=== PATIENT | female | born 1990 | race Caucasian/White ===

== ENCOUNTER 2017-04-02 18:08 | Outpatient (CLI) | payer MEDICAID ==
[~2017-04-02] VITALS: Ht 162.6 cm; Wt 52.8 kg
[2017-04-02 18:22] VITALS: BP 107/65; PULSE 74; RESP 18; Ht 162.6 cm; Wt 52.8 kg
[2017-04-02] MEDS ORDERED: PRENAT PO (18:22)
--- NOTE | 2017-04-02 18:47 | TRIAGE ---
OB Triage Datetime Report Generated by CPN: 04/02/2017 18:46 Datetime: 04/02/2017 18:38 Stage of : OB Triage Maternal Assessment Level of Consciousness: Fully Conscious Labor Evaluation Frequency: NONE Monitor Mode: External Resting Tone [place]: Relaxed Heart Rate FHR Baseline Rate: 140 Monitor Mode: External US Variability: Moderate 6-25 bpm Accelerations: 10X10 Decelerations: None Pain Assessment Pain Scale: 0 Pain Goal: 3 Vaginal Exam Membrane Status: Intact Vaginal Bleeding: None Datetime: 04/02/2017 18:20 Assessment Type: Triage Maternal Assessment Level of Consciousness: Fully Conscious DTR's/Clonus: DTRs 2+; No Clonus Headache: Denies Blurred Vision: No Respiratory Effort: Unlabored; Regular Rhythm; Equal Expansion Breath Sounds, Left: Clear and Equal Breath Sounds, Right: Clear and Equal Nausea/Vomiting: Denies RUQ Epigastric Pain: Denies Lower Extremities Edema: None Degree: None Upper Extremities Edema: None Degree: None Facial Edema: None Fall Risk Assessment History of Falling: (0) No Secondary Diagnosis: (0) No Ambulatory Aid: (0) Bedrest/Nurse Assist IV Therapy: (0) No Gait: (0) Normal/Bedrest/Immobile Mental Status: (0) Oriented to Own Ability Fall Score: 0 Fall Risk Score Definition: No Risk: No action required Datetime: 04/02/2017 18:18 Time of Arrival: 04/02/2017 18:01 EGA: 28.0 Arrived By: Ambulatory Arrived From: Home Chief Complaint: PT HERE C/O BUMP ON PERINEUM Movement: Present Contractions: Denies/Absent Rupture of Membranes: Denies Vaginal Bleeding: None Vaginal Discharge: Denies Recent Sexual Intercouse: Denies Abdominal Trauma: Not Applicable Patient Complaints: None Time Provider Notified: 04/02/2017 18:15 Provider Notified: SHAMSIAN Initial Plan: NST Datetime: 04/02/2017 18:16 Monitor Mode: External Monitor Mode: External US
--- NOTE | 2017-04-02 20:24 | QN ---
Documentation Comment iup 28 weeks co fo bump on vagina vss exam wnl no masses palpated on groin nst reacitve a/p iup 28 weeks false labor dc [place] ROSAS ESCALONA MD Apr 02, 2017 20:23
== END 2017-04-02 18:46 | disposition home or self-care (01) ==
LOC: OBT 18:08 → L-D 18:08 → OBT 18:46
PROVIDERS: ATTEND Obstetrics & Gynecology
DX: O47.1 False labor at or after 37 completed weeks of gestation (principal); Z3A.28 28 weeks gestation of pregnancy
CPT/HCPCS: G0463

== ENCOUNTER 2017-06-09 18:35 | Outpatient (CLI) | payer MEDICAID, OTHER ==
[~2017-06-09] VITALS: Ht 162.6 cm; Wt 54.2 kg
[~2017-06-09 18:35] MED LIST: PRENAT PO
[2017-06-09 18:48] VITALS: BP 114/66; PULSE 95; RESP 18; Ht 162.6 cm; Wt 54.2 kg
--- NOTE | 2017-06-09 19:59 | RADRPT ---
PROCEDURE: US biophysical profile. CLINICAL INDICATION: DFM. well-being. TECHNIQUE: Multiple sonographic images of the uterus were obtained. The images were revi ewed on a PACS workstation. COMPARISON: No prior studies are available for comparison. FINDINGS: There is a single live intrauterine gestation. heart rate is 161 beats per minute. The position is cephalic. The placenta is anterior, grade II. The ASHLEY is 16.7 cm. Breathing Movement: 2 Gross Body Movement: 2 Tone: 2 Qualitative Amniotic Fluid Volume: 2 TOTAL: 8 IMPRESSION: 1. Single viable intrauterine gestation. 2. Biophysical profile = 04/27. 3. ASHLEY = 16.7 cm. RPTAT: HFN .Keith Sanz MD, MD Date Time Electronically viewed and signed by .Keith Sanz MD, MD on 06/09/2017 19:59 .N/
[2017-06-09 23:24] LABS: ALBUMIN 3.5 g/dl (3.3-4.9); BILIRUBIN,INDIRECT 0.2 mg/dl (0-1.1); BILIRUBIN,TOTAL 0.2 mg/dl (0.2-1.3)
--- NOTE | 2017-06-10 01:06 | PN ---
Triage Information Date/Time 06/09/2017 Reason for visit: DFHR Weeks of Gestation 37 weeks and 5 days /Para 2 para 1 Diabetes: none Hypertention: none Additional information 26-year-old with IUP at 37 weeks and 5 days here today with complaint of decreased movement. She had her care with Dr. Pallavi Curtis Patient denies any leaking of fluid, vaginal bleeding or contractions. Reports a history of cholestasis of and prior has been induced. Reports had only mild occasional itching of body. Denies any itching of hands and feet. She denies any diagnosis of consistent current . She reports her current was complicated by anemia. Objective Vital Signs Date Time Temp Pulse Resp B/P Pulse Ox O2 Delivery O2 Flow Rate FiO2 06/09/17 18:48 98.2 95 18 114/66 97 Room Air Heart Rate: 130's Contractions: >10 Minutes Apart Exam General appearance: Alert and oriented 4. Patient does not appear to be in any acute distress. NST: Category 1 BMP: 8/8 Fundal height consistent with gestational age Abdomen: Gravid, no tenderness no rebound tenderness no guarding rigidity LFT and bile acids drawn. Results are pending Chemistry Test 06/09/17 21:50 Total Bilirubin 0.2mg/dl (0.2-1.3) Direct Bilirubin 0.00mg/dl (0.00-0.20) Indirect Bilirubin 0.2mg/dl (0-1.1) Aspartate Amino Transf (AST/SGOT) 23IU/L (15-46) Alanine Aminotransferase (ALT/SGPT) 24IU/L (13-69) Alkaline Phosphatase 233IU/L (42-121) H Total Protein 7.0g/dl (6.1-8.1) Albumin 3.5g/dl (3.3-4.9) Results/Medications Results 24 hrs Laboratory Tests Test 06/09/17 21:50 Total Bilirubin 0.2 Direct Bilirubin 0.00 Indirect Bilirubin 0.2 Aspartate Amino Transf (AST/SGOT) 23 Alanine Aminotransferase (ALT/SGPT) 24 Alkaline Phosphatase 233 H Total Protein 7.0 Albumin 3.5 Imaging Results PROCEDURE: US biophysical profile. CLINICAL INDICATION: DFM. well-being. TECHNIQUE: Multiple sonographic images of the uterus were obtained. The images were reviewed on a PACS workstation. COMPARISON: No prior studies are available for comparison. FINDINGS: There is a single live intrauterine gestation. heart rate is 161 beats per minute. The position is cephalic. The placenta is anterior, grade II. The ASHLEY is 16.7 cm. Breathing Movement: 2 Gross Body Movement: 2 Tone: 2 Qualitative Amniotic Fluid Volume: 2 TOTAL: 8 IMPRESSION: 1. Single viable intrauterine gestation. 2. Biophysical profile = 8/8. 3. ASHLEY = 16.7 cm. Disposition: Discharge Assessment/Plan IUP at 37 weeks and 5 Decreased movement testing reassuring History of cholestasis and prior Denies any diagnosis of cholecystitis and current Denies any symptoms now. Due to occasional body mild itching, LFT and bile acids were drawn Patient was advised to return to triage in 3 days for repeat NST/BPP LFT normal Likely does not have cholestasis Patient verbalized understanding Strict labor precautions and kick count discussed with the patient PETE MENDOZA MD Jun 10, 2017 01:06
--- NOTE | 2017-06-10 01:33 | TRIAGE ---
OB Triage Datetime Report Generated by CPN: 06/10/2017 01:33 Datetime: 06/09/2017 22:02 Stage of : OB Triage Labor Evaluation Frequency: 1.5-13 Monitor Mode: External Duration (sec)2399: 40-130 Quality: Mild Pattern: Normal: <= 5 Contractions in 10 Minutes Resting Tone [place]: Relaxed Heart Rate FHR Baseline Rate: 135 Monitor Mode: External US Variability: Moderate 6-25 bpm Accelerations: 15X15 Decelerations: None Category: Category I Datetime: 06/09/2017 21:28 Stage of : OB Triage Datetime: 06/09/2017 21:00 Stage of : OB Triage Labor Evaluation Frequency: 1.5-13 Monitor Mode: External Duration (sec)2399: 40-160 Quality: Mild Pattern: Normal: <= 5 Contractions in 10 Minutes Resting Tone [place]: Relaxed Heart Rate FHR Baseline Rate: 150 Monitor Mode: External US Variability: Moderate 6-25 bpm Accelerations: 15X15 Decelerations: Variable Category: Category II Datetime: 06/09/2017 20:04 Stage of : OB Triage Datetime: 06/09/2017 20:03 Stage of : OB Triage Datetime: 06/09/2017 20:00 Stage of : OB Triage Labor Evaluation Frequency: 1-8 Monitor Mode: External Duration (sec)2399: 40-140 Quality: Mild Pattern: Normal: <= 5 Contractions in 10 Minutes Resting Tone [place]: Relaxed Heart Rate FHR Baseline Rate: 155 Monitor Mode: External US Variability: Moderate 6-25 bpm Accelerations: 15X15 Decelerations: Variable Category: Category II Datetime: 06/09/2017 19:40 Vaginal Exam Dilatation (cms): 0.0 Effacement (%): 40 Station: -3 Exam By: CHARLEY Marino Vaginal Bleeding: None Cervix, Consistency: Moderate Cervix, Position: Posterior Datetime: 06/09/2017 19:33 Stage of : OB Triage Assessment Type: Triage Maternal Assessment Level of Consciousness: Fully Conscious DTR's/Clonus: DTRs 2+; No Clonus Blurred Vision: No Respiratory Effort: Unlabored; Regular Rhythm; Equal Expansion Breath Sounds, Left: Clear and Equal Breath Sounds, Right: Clear and Equal Nausea/Vomiting: Denies RUQ Epigastric Pain: Denies Lower Extremities Edema: None Degree: None Upper Extremities Edema: None Degree: None Facial Edema: None Temperature Route: Oral Fall Risk Assessment History of Falling: (0) No Secondary Diagnosis: (0) No Ambulatory Aid: (0) Bedrest/Nurse Assist IV Therapy: (0) No Gait: (0) Normal/Bedrest/Immobile Mental Status: (0) Oriented to Own Ability Fall Score: 0 Fall Risk Score Definition: No Risk: No action required Pain Assessment Pain Scale: 7 Pain Presence: Intermittent Pain Type: Cramping; Contraction Pain Location: Abdomen; Back Pain Relief Measures: Comfort Measures Datetime: 06/09/2017 19:24 Stage of : OB Triage Datetime: 06/09/2017 19:10 Stage of : OB Triage Datetime: 06/09/2017 18:46 Assessment Type: Triage Maternal Assessment Level of Consciousness: Fully Conscious DTR's/Clonus: DTRs 2+; No Clonus Headache: Denies Blurred Vision: No Respiratory Effort: Unlabored; Regular Rhythm; Equal Expansion Breath Sounds, Left: Clear and Equal Breath Sounds, Right: Clear and Equal Nausea/Vomiting: Denies RUQ Epigastric Pain: Denies Lower Extremities Edema: None Degree: None Upper Extremities Edema: None Degree: None Facial Edema: None Fall Risk Assessment History of Falling: (0) No Secondary Diagnosis: (0) No Ambulatory Aid: (0) Bedrest/Nurse Assist IV Therapy: (0) No Gait: (0) Normal/Bedrest/Immobile Mental Status: (0) Oriented to Own Ability Fall Score: 0 Fall Risk Score Definition: No Risk: No action required Datetime: 06/09/2017 18:44 Time of Arrival: 06/09/2017 18:25 EGA: 37.5 Arrived By: Ambulatory Arrived From: Home Chief Complaint: pt here c/o DFM Movement: Absent Contractions: Denies/Absent Rupture of Membranes: Denies Vaginal Bleeding: None Vaginal Discharge: Present Recent Sexual Intercouse: Denies Abdominal Trauma: Not Applicable Patient Complaints: None Time Provider Notified: 06/09/2017 20:04 Provider Notified: ABUSLEME Initial Plan: NST/BPP Datetime: 06/09/2017 18:38 Monitor Mode: External Monitor Mode: External US Datetime: 04/02/2017 18:20 Fall Score: 0 Fall Risk Score Definition: No Risk: No action required Datetime: 04/02/2017 18:18 EGA: 28.0
== END 2017-06-09 22:08 | disposition home or self-care (01) ==
LOC: OBT 18:35 → L-D 18:37 → OBT 22:08
PROVIDERS: ATTEND Obstetrics & Gynecology
DX: O36.8130 Decreased fetal movements, third trimester, not applicable or unspecified (principal); Z3A.37 37 weeks gestation of pregnancy
CPT/HCPCS: 76818; 80076; 83789; G0463

== ENCOUNTER 2017-06-13 18:09 | Outpatient (CLI) | payer OTHER ==
[~2017-06-13] VITALS: Ht 162.6 cm; Wt 55.0 kg
--- NOTE | 2017-06-13 19:53 | RADRPT ---
PROCEDURE: Obstetrical ultrasound for biophysical profile CLINICAL INDICATION: Biophysical profile. . TECHNIQUE: Obstetrical ultrasound of the uterus for biophysical profile. Transabdominal views are obtained. COMPARISON: 06/09/2017 FINDINGS: Single intrauterine gestation. Presentation: Cephalic. Placenta: Anterior. No evidence of placental abruption. No evidence of placenta previa. breathing movement = 2/2 tone = 2/2 motion = 2/2 ASHLEY = 2/2 ASHLEY = 8.4 cm heart rate: 150 beats per minute IMPRESSION: Single intrauterine gestation. Biophysical profile 04/27 RPTAT: AADD .Kurt Resendez MD, MD Date Time Electronically viewed and signed by .Kurt Resendez MD, on 06/13/2017 19:52 .B/
[2017-06-13 22:41] VITALS: Ht 162.6 cm; Wt 55.0 kg
[2017-06-13 22:42] VITALS: BP 118/59; PULSE 69; RESP 19
--- NOTE | 2017-06-13 22:47 | PN ---
Triage Information Date/Time Jun 13, 2017 Reason for visit: DFM Weeks of Gestation 38w 2d /Para 2/1 Diabetes: none Hypertention: none Additional information Pt also reports some contractions since yesterday AM. Denies bleeding or leaking.Has not been taking in much water/fluid. PMHx: None except has a Total Bile Acid study pending however the pt denies any itching at this time. PSHx: none. NKDA. Objective Heart Rate: 130's Heart Rate Comments Accels to 180 bpm. No decels. Contractions: 6-10 Minutes Apart Exam Thick/2 cm/-3. Results/Medications Imaging Results BPP 8/8. ASHLEY 8.4 cm. VTX. Disposition: Discharge Assessment/Plan A: IUP at 38w 2d. Decreased movement. False labor. P: D/C home. kick counts, labor precautions reviewed and pt encouraged to increase her IV fluid intake. STEF MO MD Jun 13, 2017 22:46
--- NOTE | 2017-06-13 23:29 | TRIAGE ---
OB Triage Datetime Report Generated by CPN: 06/13/2017 23:29 Datetime: 06/13/2017 22:23 Stage of : OB Triage Vaginal Exam Dilatation (cms): 2.0 Effacement (%): 50 Station: -3 Exam By: Cervix, Position: Posterior Datetime: 06/13/2017 22:22 Stage of : OB Triage Datetime: 06/13/2017 22:03 Stage of : OB Triage Labor Evaluation Frequency: 5-8 Monitor Mode: External Duration (sec)2399: 60-120 Pattern: Normal: <= 5 Contractions in 10 Minutes Resting Tone [place]: Relaxed Heart Rate FHR Baseline Rate: 130 Monitor Mode: External US Variability: Moderate 6-25 bpm Accelerations: 15X15 Decelerations: None Category: Category I Pain Assessment Pain Scale: 2 Pain Presence: Intermittent Pain Type: Contraction Pain Location: Abdomen Pain Relief Measures: Comfort Measures Datetime: 06/13/2017 21:25 Stage of : OB Triage Datetime: 06/13/2017 21:00 Stage of : OB Triage Labor Evaluation Frequency: Occasional Monitor Mode: External Pattern: Normal: <= 5 Contractions in 10 Minutes Resting Tone [place]: Relaxed Heart Rate FHR Baseline Rate: 140 Monitor Mode: External US Variability: Moderate 6-25 bpm Accelerations: 15X15 Decelerations: Late Category: Category II Pain Assessment Pain Scale: 2 Pain Presence: Intermittent Pain Type: Contraction Pain Location: Abdomen Pain Relief Measures: Comfort Measures Datetime: 06/13/2017 20:39 Stage of : OB Triage Pain Assessment Pain Scale: 0 Pain Presence: Intermittent Pain Type: Contraction Pain Location: Abdomen Pain Relief Measures: Comfort Measures Datetime: 06/13/2017 20:18 Vaginal Exam Dilatation (cms): 0.0 Exam By: Amie, RN Vaginal Bleeding: None Cervix, Consistency: Soft Datetime: 06/13/2017 20:04 Stage of : OB Triage Labor Evaluation Frequency: x4 Monitor Mode: External Duration (sec)2399: 40-70 Pattern: Normal: <= 5 Contractions in 10 Minutes Resting Tone [place]: Relaxed Heart Rate FHR Baseline Rate: 145 Monitor Mode: External US Variability: Moderate 6-25 bpm Accelerations: Prolonged Decelerations: Late; Variable Category: Category II Pain Assessment Pain Scale: 7 Pain Presence: Intermittent Pain Type: Contraction Pain Location: Abdomen Pain Relief Measures: Comfort Measures Datetime: 06/13/2017 18:56 Maternal Assessment Level of Consciousness: Fully Conscious DTR's/Clonus: DTRs 1+ Headache: Denies Blurred Vision: No Respiratory Effort: Unlabored Breath Sounds, Left: Clear and Equal Breath Sounds, Right: Clear and Equal Nausea/Vomiting: Denies RUQ Epigastric Pain: Denies Facial Edema: None Labor Evaluation Frequency: NONE Monitor Mode: External Resting Tone [place]: Relaxed Heart Rate FHR Baseline Rate: 160 Monitor Mode: External US Variability: Moderate 6-25 bpm Accelerations: 15X15 Decelerations: None Category: Category I Pain Assessment Pain Scale: 0 Pain Presence: None/Denies Pain Type: N/A Pain Goal: 3 Membrane Status: Intact Datetime: 06/13/2017 18:07 Time of Arrival: 06/13/2017 18:07 EGA: 38.2 Arrived By: Wheelchair Arrived From: Emergency Dept Movement: Present Contractions: Occasional Rupture of Membranes: Denies Vaginal Bleeding: None Vaginal Discharge: Denies Recent Sexual Intercouse: Denies Abdominal Trauma: Not Applicable Patient Complaints: Contractions; Other Additional Patient Complaints: DFM Time Provider Notified: 06/13/2017 18:30 Provider Notified: Dr.Reiche Initial Plan: VS, EFM Datetime: 06/09/2017 21:57 Stage of : OB Triage Datetime: 06/09/2017 19:33 Fall Risk Assessment Fall Score: 0 Fall Risk Score Definition: No Risk: No action required Datetime: 06/09/2017 18:46 Fall Risk Assessment Fall Score: 0 Fall Risk Score Definition: No Risk: No action required Datetime: 06/09/2017 18:44 EGA: 37.5 Datetime: 04/02/2017 18:20 Fall Risk Assessment Fall Score: 0 Fall Risk Score Definition: No Risk: No action required Datetime: 04/02/2017 18:18 EGA: 28.0
== END 2017-06-13 22:40 | disposition home or self-care (01) ==
LOC: L-D 18:09 → OBT 18:09
PROVIDERS: ATTEND Obstetrics & Gynecology
DX: O36.8130 Decreased fetal movements, third trimester, not applicable or unspecified (principal); O47.1 False labor at or after 37 completed weeks of gestation; Z3A.38 38 weeks gestation of pregnancy
CPT/HCPCS: 76818; G0463

== ENCOUNTER 2017-06-17 00:26 | Inpatient (IN) | payer OTHER ==
[~2017-06-17] VITALS: Ht 162.6 cm; Wt 55.0 kg
[2017-06-17 00:48] VITALS: Ht 162.6 cm; Wt 55.0 kg
[2017-06-17 00:49] VITALS: BP 118/74; PULSE 60; RESP 18
[2017-06-17] MEDS ORDERED: LIDOCAINE 1% (MPF) 30 ML INJ INJ PRN (01:30)
[2017-06-17] MEDS ORDERED: OXYTOCIN 30 UNITS/LR 500 ML IV PRN ×2 (01:30→09:30)
[2017-06-17] MEDS ORDERED: IBUPROFEN 600 MG TAB PO PRN (01:30)
[2017-06-17] MEDS ORDERED: METHYLERGONOVINE 0.2 MG INJ IM PRN ×2 (01:30→09:30)
[2017-06-17] MEDS ORDERED: MISOPROSTOL 200 MCG TAB PR PRN ×2 (01:30→09:30)
[2017-06-17] MEDS ORDERED: CARBOPROST 250 MCG INJ IM PRN ×2 (01:30→09:30)
[2017-06-17] MEDS ORDERED: BUTORPHANOL 2 MG INJ IV PRN (01:30)
[2017-06-17] MEDS ORDERED: AMPICILLIN 2 GM/NS (PMX) 100 ML IV ONE (01:30)
[2017-06-17] MEDS ORDERED: OXYTOCIN 30 UNITS/LR 500 ML IV SCH ×2 (01:30)
[2017-06-17] MEDS ORDERED: LACTATED RINGER'S 1,000 ML IV PRN (01:30)
[2017-06-17] MEDS: LACTATED RINGER'S 1,000 ML IV SCH ×2 (01:52→09:08)
[2017-06-17 02:37] LABS: BASOPHILS % 0.4 % (0.0-2.0); EOSINOPHILS % 0.3 % (0.0-7.0); HEMOGLOBIN 11.5 g/dl (12.0-16.0); LYMPHOCYTES # 2.5 10^3/ul (0.8-2.9); LYMPHOCYTES % 31.6 % (15.0-51.0); MEAN CORPUSCULAR HEMOGLOBIN 31.9 pg (29.0-33.0); MEAN CORPUSCULAR HGB CONC 34.8 g/dl (32.0-37.0); MEAN CORPUSCULAR VOLUME 91.4 fl (82.0-101.0); MEAN PLATELET VOLUME 10.8 fl (7.4-10.4); MONOCYTE # 0.7 10^3/ul (0.3-0.9); MONOCYTES % 8.5 % (0.0-11.0); NEUTROPHIL # 4.6 10^3/ul (1.6-7.5); NEUTROPHILS % 57.9 % (39.0-77.0); PLATELET COUNT 195 10^3/UL (140-415); RED BLOOD COUNT 3.61 10^6/ul (4.20-5.40); RED CELL DISTRIBUTION WIDTH 12.8 % (11.5-14.5); WHITE BLOOD COUNT 7.9 10^3/ul (4.8-10.8)
[2017-06-17 02:53] LABS: INR 0.81; PROTIME 11.2 Sec (12.2-14.2); PT RATIO 0.9
[2017-06-17 02:54] LABS: PARTIAL THROMBOPLASTIN TIME 25.5 Sec (25.0-35.0)
--- NOTE | 2017-06-17 03:14 | TRIAGE ---
OB Triage Datetime Report Generated by CPN: 06/17/2017 03:14 Datetime: 06/17/2017 02:57 Vaginal Exam Dilatation (cms): 5.0 Effacement (%): 80 Station: -1 Exam By: KATIUSKA WHITEHEAD Vaginal Bleeding: Normal Show Cervix, Consistency: Soft Cervix, Position: Midposition Presentation 'A': Cephalic Datetime: 06/17/2017 02:34 Assessment Type: Admission Assessment Vaginal Bleeding: None Maternal Assessment Level of Consciousness: Fully Conscious DTR's/Clonus: DTRs 2+; No Clonus Headache: Denies Blurred Vision: No Respiratory Effort: Unlabored; Regular Rhythm; Equal Expansion Breath Sounds, Left: Clear and Equal Breath Sounds, Right: Clear and Equal Nausea/Vomiting: Denies RUQ Epigastric Pain: Denies Lower Extremities Edema: None Degree: None Upper Extremities Edema: None Degree: None Facial Edema: None Temperature Route: Oral Fall Risk Assessment History of Falling: (0) No Secondary Diagnosis: (0) No Ambulatory Aid: (0) Bedrest/Nurse Assist IV Therapy: (20) Yes Gait: (0) Normal/Bedrest/Immobile Mental Status: (0) Oriented to Own Ability Fall Score: 20 Fall Risk Score Definition: No Risk: No action required Labor Evaluation Frequency: 3-7 Monitor Mode: External Duration (sec)2399: 40-90 Quality: Moderate Pattern: Normal: <= 5 Contractions in 10 Minutes Resting Tone [place]: Relaxed Heart Rate FHR Baseline Rate: 130 Monitor Mode: External US Variability: Moderate 6-25 bpm Accelerations: 15X15 Decelerations: None Category: Category I Pain Assessment Pain Scale: 7 Pain Presence: Intermittent Pain Type: Contraction Pain Location: Abdomen Datetime: 06/17/2017 01:56 Time of Arrival: 06/17/2017 01:56 EGA: 38.6 Arrived By: Ambulatory Arrived From: TRIAGE Datetime: 06/17/2017 01:54 Stage of : OB Triage Labor Evaluation Frequency: 2-7 Monitor Mode: External Duration (sec)2399: 50-220 Quality: Strong Pattern: Normal: <= 5 Contractions in 10 Minutes Resting Tone [place]: Relaxed Heart Rate FHR Baseline Rate: 130 Monitor Mode: External US Variability: Moderate 6-25 bpm Accelerations: 15X15 Decelerations: None Category: Category I Comments: MONITOR OFF, PT TO FBC4 Datetime: 06/17/2017 01:02 Stage of : OB Triage Datetime: 06/17/2017 01:00 Stage of : OB Triage Labor Evaluation Frequency: 4-8 Monitor Mode: External Duration (sec)2399: 50-100 Quality: Strong Pattern: Normal: <= 5 Contractions in 10 Minutes Resting Tone [place]: Relaxed Heart Rate FHR Baseline Rate: 135 Monitor Mode: External US Variability: Moderate 6-25 bpm Accelerations: 15X15 Decelerations: None Category: Category I Datetime: 06/17/2017 00:59 Stage of : OB Triage Vaginal Exam Dilatation (cms): 4.0 Effacement (%): 70 Station: -2 Exam By: JamilaRN Vaginal Bleeding: Small Datetime: 06/17/2017 00:45 Stage of : OB Triage Assessment Type: Triage Maternal Assessment Level of Consciousness: Fully Conscious DTR's/Clonus: DTRs 2+; No Clonus Headache: Denies Blurred Vision: No Respiratory Effort: Unlabored; Regular Rhythm; Equal Expansion Breath Sounds, Left: Clear and Equal Breath Sounds, Right: Clear and Equal Nausea/Vomiting: Denies RUQ Epigastric Pain: Denies Lower Extremities Edema: None Degree: None Upper Extremities Edema: None Degree: None Facial Edema: None Temperature Route: Oral Fall Risk Assessment History of Falling: (0) No Secondary Diagnosis: (0) No Ambulatory Aid: (0) Bedrest/Nurse Assist IV Therapy: (0) No Gait: (0) Normal/Bedrest/Immobile Mental Status: (0) Oriented to Own Ability Fall Score: 0 Fall Risk Score Definition: No Risk: No action required Pain Assessment Pain Scale: 7 Pain Presence: Intermittent Pain Type: Cramping; Contraction Pain Location: Abdomen Pain Relief Measures: Comfort Measures Datetime: 06/17/2017 00:38 Time of Arrival: 06/17/2017 00:21 EGA: 38.6 Arrived By: Wheelchair Arrived From: Home Chief Complaint: Bleeding since 2339 with uc's q5mins Movement: Present Contractions: Regular Time Contractions Began: 06/16/2017 23:40 Contractions: q5mins Rupture of Membranes: Unsure Vaginal Bleeding: Moderate Vaginal Discharge: Present Recent Sexual Intercouse: Yes Abdominal Trauma: Not Applicable Patient Complaints: Contractions; Cramping Time Provider Notified: 06/17/2017 01:06 Provider Notified: Initial Plan: EFM x2 Datetime: 06/13/2017 18:07 EGA: 38.2 Datetime: 06/09/2017 19:33 Fall Score: 0 Fall Risk Score Definition: No Risk: No action required Datetime: 06/09/2017 18:46 Fall Score: 0 Fall Risk Score Definition: No Risk: No action required Datetime: 06/09/2017 18:44 EGA: 37.5 Datetime: 04/02/2017 18:20 Fall Score: 0 Fall Risk Score Definition: No Risk: No action required Datetime: 04/02/2017 18:18 EGA: 28.0
[2017-06-17] MEDS ORDERED: AMPICILLIN 1 GM/NS (PMX) 50 ML IV SCH (05:30)
[2017-06-17] MEDS ORDERED: MINERAL OIL LIGHT 10 ML VIAL TOP ONE (07:30)
[2017-06-17] MEDS ORDERED: DIBUCAINE 1% 30 GM OINT PR PRN (09:30)
[2017-06-17] MEDS ORDERED: HYDROCODONE/APAP (5/325) TAB PO PRN ×2 (09:30)
[2017-06-17] MEDS ORDERED: LANOLIN 7 GM TUBE TOP PRN (09:30)
[2017-06-17] MEDS ORDERED: ONDANSETRON 4 MG INJ IV PRN (09:30)
[2017-06-17] MEDS ORDERED: ACETAMINOPHEN 325 MG TAB PO PRN ×2 (09:30)
[2017-06-17] MEDS ORDERED: DIPHENHYDRAMINE 25 MG CAP PO PRN (09:30)
--- NOTE | 2017-06-17 09:35 | HP ---
Date/Time of Note Date/Time of Note DATE: 06/17/17 TIME: 09:32 OB - History Hx of Present Estimated Due Date: Jun 25, 2017 : 2 Para: 1 Care: Good Care Ultrasounds: Normal mid trimester US Obstetrical Complications: None Past Family/Social History * Past Medical, Surgical, Family and Obstetric Histories reviewed from chart. Blood Type: O+ Rubella: immune RPR/VDRL: Negative GBS Status: Positive HBsAG: Negative OB Admission Exam Vital Signs Vital Signs Vital Signs Date Time Temp Pulse Resp B/P Pulse Ox O2 Delivery O2 Flow Rate FiO2 06/17/17 00:49 97.9 60 18 118/74 Room Air Physical Exam HEENT: WNL Heart: Rhythm Normal Lungs: Clear, Equal Abdomen: WNL Extremities: Normal Reflexes: Normal Cervical Dilatation: 4cm Effacement: 75% Station: -2 Membranes: Intact Decelerations: No Decelerations Varibility: Moderate Contractions on Admission: 6-10 Minutes Apart Intensity: Mild Last 72 hours Lab Results CBC & BMP 06/17/17 02:00 OB Assessment/Plan Other plan: delivery FLORENCE RIGGINS MD Jun 17, 2017 09:35
--- NOTE | 2017-06-17 09:38 | LDN ---
Date/Time of Note Date/Time of Note DATE: 06/17/17 TIME: 09:35 Delivery Summary UNDER NO ANESTHESIA NO LACERATIONS NO PP BLEEDING BABY GIRL 9 Weeks of Gestation 39 weeks Placenta Delivered: Spontaneously Meconium: none Episiotomy: No Estimated blood loss: 200 Sponge & Needle done & correct: Yes All needle counts correct: Yes Any foreign bodies felt in the: No Problems: Infant Delivery Information Sex Infant Sex: female Apgars 1 Minute: 9 5 Minute: 9 Suctioning Nose & mouth suctioned at ariana: Yes Umbilical Cord Umbilical cord with: 3 Vessels Cord presentations: no nuchal cord Cord Blood was obtained: Yes Mother & Baby Disposition Disposition Mom & Baby to Maternity; Good: Yes FLORENCE RIGGINS MD Jun 17, 2017 09:38
[2017-06-17] MEDS: OXYTOCIN 30 UNITS/LR 500 ML IV SCH ×2 (09:43→12:50)
[2017-06-17 10:45] VITALS: BP 109/67; PULSE 56; RESP 18
[2017-06-17 12:48] VITALS: BP 102/64; PULSE 51; RESP 18
[2017-06-17] MEDS: IBUPROFEN 800 MG TAB PO SCH ×3 (12:48→23:51)
[2017-06-17 16:25] VITALS: BP 117/69; PULSE 49; RESP 18
[2017-06-17 20:05] VITALS: BP 107/61; PULSE 60; RESP 17
[2017-06-17] MEDS: SENNA/DOCUSATE NA (8.6MG/50MG) TAB PO SCH (21:24)
[2017-06-18 03:55] VITALS: BP 104/52; PULSE 55; RESP 20
[2017-06-18] MEDS: IBUPROFEN 800 MG TAB PO SCH ×3 (05:33→18:13)
[2017-06-18 09:15] VITALS: BP 105/63; PULSE 58; RESP 16
[2017-06-18 09:51] LABS: BASOPHILS % 0.4 % (0.0-2.0); EOSINOPHILS % 0.5 % (0.0-7.0); HEMATOCRIT 30.7 % (37.0-47.0); HEMOGLOBIN 10.4 g/dl (12.0-16.0); LYMPHOCYTES # 2.3 10^3/ul (0.8-2.9); LYMPHOCYTES % 27.1 % (15.0-51.0); MEAN CORPUSCULAR HGB CONC 33.9 g/dl (32.0-37.0); MEAN CORPUSCULAR VOLUME 94.5 fl (82.0-101.0); MEAN PLATELET VOLUME 10.7 fl (7.4-10.4); MONOCYTE # 0.5 10^3/ul (0.3-0.9); MONOCYTES % 5.9 % (0.0-11.0); NEUTROPHIL # 5.4 10^3/ul (1.6-7.5); NEUTROPHILS % 64.5 % (39.0-77.0); PLATELET COUNT 168 10^3/UL (140-415); RED BLOOD COUNT 3.25 10^6/ul (4.20-5.40); WHITE BLOOD COUNT 8.4 10^3/ul (4.8-10.8)
--- NOTE | 2017-06-18 10:47 | PD.PPDC ---
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
--- NOTE | 2017-06-18 10:49 | DS ---
Date/Time of Note Date/Time of Note DATE: 06/18/17 TIME: 10:48 Obstetrical Discharge Record Final Diagnosis Final Diagnosis: Term delivered Vaginal Delivery Obstetrical Delivery: Spontaneous Condition on Discharge Physical Assessment Voiding: Yes Bowel Movement: Yes Breast: Soft, non-tender, Filling Fundus: Firm Calf Tenderness: No Patient Condition: Good FLORENCE RIGGINS MD Jun 18, 2017 10:49
--- NOTE | 2017-06-18 10:58 | PN ---
Date/Time of Note Date/Time of Note DATE: 06/18/17 TIME: 10:56 OB Subjective Subjective Subjective . Day 1 post vaginal delivery. feeling good, stable and in good condition. uterus contracted and lochia normal. normal extremities. anticipated to be sent home in the morning FLORENCE RIGGINS MD Jun 18, 2017 10:58
[2017-06-18] MEDS: SENNA/DOCUSATE NA (8.6MG/50MG) TAB PO SCH ×2 (12:41→20:32)
[2017-06-18] MEDS ORDERED: INFLUENZA VIRUS VACCINE 0.5 ML (DISPENSING) IM* ONE (17:00)
[2017-06-18 20:24] VITALS: BP 110/70; PULSE 68; RESP 18
[2017-06-19 04:25] VITALS: BP 117/72; PULSE 70; RESP 19
[2017-06-19] MEDS: IBUPROFEN 800 MG TAB PO SCH ×3 (04:50→11:47)
[2017-06-19 09:00] VITALS: BP 103/59; PULSE 53; RESP 16
[2017-06-19] MEDS ORDERED: VARICELLA VACCINE LIVE/PF 1,350 UNIT/0.5 ML ML SC* ONE (09:00)
[2017-06-19] MEDS ORDERED: MEASLES,MUMPS,RUBELLA VACCINE INJ SC* ONE (09:00)
[2017-06-19] MEDS ORDERED: DIPHTH/TET/ACEL PERTUSS (ADULT) 0.5 ML VIAL IM* ONE (09:00)
[2017-06-19] MEDS: SENNA/DOCUSATE NA (8.6MG/50MG) TAB PO SCH (10:34)
== END 2017-06-19 12:15 | disposition home or self-care (01) | DRG 775 ==
LOC: OBT 00:26 → L-D 00:27 → OBT 01:28 → L-D 01:30 → PP1 10:55
PROVIDERS: ADMIT Obstetrics & Gynecology; ATTEND Obstetrics & Gynecology
PROC: 10E0XZZ Delivery of Products of Conception, External Approach (ICD-10-PCS; principal; 2017-06-17)
PROC: 4A1HX4Z Monitoring of Products of Conception, Cardiac Electrical Activity, External Approach (ICD-10-PCS; 2017-06-17)
PROC: 3E0234Z Introduction of Serum, Toxoid and Vaccine into Muscle, Percutaneous Approach (ICD-10-PCS; 2017-06-18)
PROC: 3E0234Z Introduction of Serum, Toxoid and Vaccine into Muscle, Percutaneous Approach (ICD-10-PCS; 2017-06-19)
DX: O99.824 Streptococcus B carrier state complicating childbirth (principal); Z23 Encounter for immunization; Z37.0 Single live birth; Z3A.39 39 weeks gestation of pregnancy
CPT/HCPCS: 36415; 85025; 85610; 85730; 86592; 86900; 86901; 90686; 90715; 90716; 99464; G0463; J0290; J2590; J7120